=== PATIENT | male | born 2000 | race American Indian/Alaskan Native ===

== ENCOUNTER 2021-08-17 13:49 | Emergency (ER) | payer SELFPAY ==
[2021-08-17 13:53] VITALS: BP 123/84
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
== END 2021-08-17 15:13 | disposition home or self-care (01) ==
LOC: ED 13:49
DX: M25.511 Pain in right shoulder (principal); M25.512 Pain in left shoulder; Z79.899 Other long term (current) drug therapy; V89.2XXA Person injured in unspecified motor-vehicle accident, traffic, initial encounter; Y93.89 Activity, other specified; Y92.488 Other paved roadways as the place of occurrence of the external cause; Y99.8 Other external cause status
CPT/HCPCS: 99282